=== PATIENT | male | born 1965 | race Caucasian/White ===

== ENCOUNTER 2021-04-27 13:43 | Emergency (ER) | payer OTHER ==
[~2021-04-27] VITALS: Ht 177.8 cm; Wt 102.1 kg
[2021-04-27] MEDS ORDERED: VISTARIL25 MG PO (15:57)
== END 2021-04-27 16:04 | disposition home or self-care (01) ==
LOC: ER 13:43
DX: F06.4 Anxiety disorder due to known physiological condition (principal)